=== PATIENT | female | born 1960 | race African-American/Black ===

== ENCOUNTER 2017-09-06 07:38 | Outpatient (CLI) | payer OTHER ==
--- NOTE | 2017-09-06 09:19 | ULT ---
GALLBLADDER ULTRASOUND: Indication: Right upper quadrant pain. FINDINGS: There is a coarsened echotexture of the liver which demonstrates diffuse hyperechoic appearance with a focal area of parenchymal decreased echogenicity measuring between 1 and 1.5 cm, with slight industrial design intern al increased echogenicity, nonspecific. There is no acute gallbladder pathology identified. Common du ct is normal at 4 mm. No ascites visualized. No hydronephrosis of the incidentally imaged portions of the right kidney. IMPRESSION: 1. Hyperechoic liver with internal focus of decreased echogenicity between 1 and 1.5 cm, nonspecific. This could relate to focal fatty sparring although an underlying lesion is not excluded. A follow up [address] abdomen and pelvis with and without contrast is warranted to further evaluate. 2. No acute gallbladder pathology. Code T POS: SANTA
== END 2017-09-06 07:39 | disposition home or self-care (01) ==
LOC: ULT 07:38
PROVIDERS: ATTEND Family Medicine
DX: R10.11 Right upper quadrant pain (principal)
CPT/HCPCS: 76705

== ENCOUNTER 2017-09-14 07:33 | Outpatient (CLI) | payer OTHER ==
--- NOTE | 2017-09-14 10:20 | CT ---
CT ABDOMEN AND PELVIS WITH AND WITHOUT CONTRAST: Date: 09/14/17 HISTORY: Right upper quadrant pain. Abnormal ultrasound. COMPARISON: Gallbladder ultrasound dated 09/06/17. FINDINGS: On the precontrast CT, lung bases are clear. No pericardial effusion. Diffuse hepatic steatosis. No abnormal calcifications of the renal collecting systems. Phleboliths in the pelvis. There is a relatively hyperdense mass in hepatic segment 5 with a small focus of peripheral capsular retraction. This measures approximately 1.2 cm. There is some mild hyperenhancement on the arterial p hase with increased ratio between the area of enhancement of the mass and the background liver. This mass enhances homogeneously. There is also retained contrast on the portal venous phase. There is a simple cyst in lower pole of left kidney. Mild vascular calcification of aorta. No adenopa thy. No dilated loops of large or small bowel. Mild prominence of the ileocecal valve. Mild thickening of the terminal ileum. There are a few foci o f submucosal fatty infiltration of the ascending colon. The pancreatic tail is a subtle hypodensity measuring less than 4.0 mm, although at this point it is felt to most likely represent focal fat within lobule as there is no significant enhancement. This is seen on series 601, image 92, in the distal pancreatic tail. Moderate facet arthropathy lower lumbar spine. Remainder of spine is unremarkable. IMPRESSION: 1. Hepatic segment 5 hepatic mass measuring 1.2 cm has findings suggestive of focal nodular hyperpla carlos versus flash-filling hemangioma. 2. Small mass hepatic segment 8 measuring under 5.0 mm, similar enhancement and characteristics, als o likely a small FNH versus hemangioma. Adenoma is felt somewhat less likely in a patient of this age . To determine between adenoma and FNH, a MRI abdomen with and without contrast with Eovist contrast would be recommended if clinically warranted. POS: SANTA
== END 2017-09-14 07:34 | disposition home or self-care (01) ==
LOC: CT 07:33
PROVIDERS: ATTEND Family Medicine
DX: R16.0 Hepatomegaly, not elsewhere classified (principal)
CPT/HCPCS: 74178

== ENCOUNTER 2017-09-28 14:07 | Outpatient (CLI) | payer OTHER | END 2017-09-28 14:08 | disposition home or self-care (01) | LOC: BICMRI 14:07 | PROVIDERS: ATTEND Family Medicine | DX: R16.0 Hepatomegaly, not elsewhere classified (principal); K76.0 Fatty (change of) liver, not elsewhere classified; K76.89 Other specified diseases of liver; N28.1 Cyst of kidney, acquired | CPT/HCPCS: 74183 ==

== ENCOUNTER 2018-03-03 14:08 | Emergency (ER) | payer OTHER ==
[2018-03-03] MEDS ORDERED: ISOVUE-370 76%-LOCM 1 ML ONE (14:32)
[2018-03-03 15:44] LABS: #Basophils 0.1 thou/uL (0.0-0.2); #Eosinphils 0.1 thou/uL (0.0-0.7); #Lymphocytes 1.2 thou/uL (1.20-3.40); #Monocytes 0.3 thou/uL (0.11-0.59); #Neutrophils 3.7 thou/uL (1.40-6.50); %Basophils 2.4 % (0.0-1.0); %Eosinophils 1.1 % (0.0-10.0); %Lymphocytes 23.2 % (21.0-51.0); %Neutrophils 68.3 % (42.0-75.0); Hemoglobin 13.3 g/dL (12.0-16.0); Mean Corpuscular HGB CONC 31.6 g/dL (32.0-36.0); Mean Corpuscular Hemoglobin 27.2 pg (27.0-31.0); Mean Platelet Volume 7.7 fL (7.4-10.4); Platelet Count 245 thou/uL (130-400); RBC Distribution Width 12.1 % (11.5-14.5); Red Blood Cell (RBC) Count 4.88 mill/uL (4.20-5.40); White Blood Cell (WBC) Count 5.4 thou/uL (4.8-10.8)
[2018-03-03 16:08] LABS: ALT (SGPT) 40 U/L (8-55); AST (SGOT) 56 U/L (5-34); Albumin 4.6 g/dL (3.5-5.0); Alkaline Phosphatase 146 U/L (40-150); Anion Gap 13 mmol/L (10-20); BUN (Urea Nitrogen) 7 mg/dL (9.8-20.1); Bilirubin, Total 0.4 mg/dL (0.2-1.2); Calc. Creatinine Clearance 0 mL/min (70-130); Carbon Dioxide 23 mmol/L (22-29); Chloride 107 mmol/L (98-107); Estimated GFR-MDRD 81; Globulin 3.3 g/dL (2.4-3.5); Glucose 111 mg/dL (70-105); Potassium 3.9 mmol/L (3.5-5.1); Protein, Total 7.9 g/dL (6.0-8.3); Sodium 139 mmol/L (136-145)
[2018-03-03] MEDS ORDERED: Lidocaine Viscous Sol 2% 15 ml UD Cup ONE (16:08)
[2018-03-03] MEDS ORDERED: Ondansetron HCl/PF 4 MG/2 ML Vial ONE (16:08)
[2018-03-03] MEDS ORDERED: Ketorolac Tromethamine 30 MG/ML VIAL ONE (16:08)
[2018-03-03] MEDS ORDERED: Mag-Al 1200 mg/1200 mg/30 ML UDCUP ONE (16:08)
[2018-03-03 16:30] LABS: Bilirubin Negative (Negative); Blood, Urine Trace (Negative); Clarity CLOUDY (Clear); Glucose, Urine (Dipstick) Negative (Negative); Leukocyte Moderate (Negative); Nitrite Negative (Negative); Protein, Urine (Dipstick) Negative (Neg-Trace); Specific Gravity, Urine 1.019 (1.002-1.036); Urobilinogen 0.2 mg/dL (0.2-1.0); pH, Urine 5.5 (5.0-9.0)
[2018-03-03 16:31] LABS: Bacteria/HPF None Seen HPF (None Seen); Hyaline Casts/LPF 4-6 HYALINE CAST LPF (0-3 Hyaline); Pathc Cast-AUWi Flag 0.87 (0-2.49); RBC/HPF 0-3 HPF (0-3); WBC/HPF 21-50 HPF (0-3)
--- NOTE | 2018-03-03 19:28 | CT ---
CT ABDOMEN AND PELVIS WITH IV CONTRAST: INDICATIONS: Diffuse abdominal pain with nausea, vomiting, and diarrhea. COMPARISON: CT abdomen from 09/14/2017. TECHNIQUE: Multiple axial tomograms obtained through the abdomen and pelvis with IV enhancement. FINDINGS: The lung bases are clear. The liver again shows evidence of hepatic steatosis. There is a subtly en hancing lesion in the peripheral right lobe of the liver, which was described on the prior exam as pr obable flesh. A subtle area of low attenuation in the anterior spleen is seen today. This was not present on the p revious portal venous phase, but the significance is uncertain. This is not a defined mass. The pancreas is unremarkable. The adrenal glands are normal. The left renal cyst is stable from the prior exam. The kidneys are otherwise unremarkable. No hydronephrosis. The urinary bladder is unr emarkable. The small bowel loops are of normal caliber. The colon is poorly evaluated by CT due to nondistentio n. Since there is a history of diarrhea, colitis cannot be excluded by CT. There is no free fluid in the abdomen or pelvis. The aorta shows atherosclerotic change but normal c aliber. No adenopathy is seen. IMPRESSION: 1. Nondistention of the colon inhibits adequate evaluation. Colitis cannot be excluded by this CT e xamination. 2. Subtle area of low attenuation in the anterior spleen seen today. Significance is uncertain. Th is could be followed up with CT or ultrasound, as clinically indicated. 3. Left renal cyst is stable. 4. Flash filling hemangioma in the lateral right kidney has been previously described on three phase CT and is faintly seen today. 5. Otherwise, no acute process. POS: AGW
== END 2018-03-03 20:30 | disposition home or self-care (01) ==
LOC: ERS 14:08
DX: N30.00 Acute cystitis without hematuria (principal); K52.9 Noninfective gastroenteritis and colitis, unspecified; E78.5 Hyperlipidemia, unspecified; I10 Essential (primary) hypertension; F32.9 Major depressive disorder, single episode, unspecified; Z79.899 Other long term (current) drug therapy
CPT/HCPCS: 74177; 80053; 81003; 81015; 85025; 96374; 96375; J1885; J2405

== ENCOUNTER 2018-04-23 13:25 | Outpatient (CLI) | payer OTHER | END 2018-04-23 13:26 | disposition home or self-care (01) | LOC: BICMAMMO 13:25 | PROVIDERS: ATTEND Family Medicine | DX: Z12.31 Encounter for screening mammogram for malignant neoplasm of breast (principal) | CPT/HCPCS: 77063; 77067 ==

== ENCOUNTER 2018-07-30 05:59 | Day surgery (SDC) | payer OTHER ==
[2018-07-29 10:40] VITALS: BMI 30.9
--- NOTE | 2018-07-30 10:35 | OP ---
DATE OF PROCEDURE: 07/30/2018 PREOPERATIVE DIAGNOSIS: Average risk screening colonoscopy. PROCEDURE PERFORMED: Colonoscopy. DESCRIPTION OF PROCEDURE: Informed consent was obtained from the patient. She was sedated with total intravenous anesthesia. The rectal exam was performed and was normal. The preparation quality was excellent. The colonoscope was advanced to the cecum with ease. The ileocecal valve and appendiceal orifice were clearly identified. The colonic mucosa was normal throughout. Retroflex views in the rectum were normal. IMPRESSION: Normal screening colonoscopy. RECOMMENDATIONS: Repeat colon cancer screening in 10 years. Job ID: [id number]
[2018-07-30] MEDS ORDERED: Lidocaine 1% PF 5 ML VIAL ONE (16:39)
[2018-07-30] MEDS ORDERED: PROPOFOL 200 MG/20 ML VIAL ONE (16:39)
== END 2018-07-30 09:33 | disposition home or self-care (01) ==
LOC: SDC 05:59
PROVIDERS: ATTEND Internal Medicine Gastroenterology
PROC: 0DJD8ZZ Inspection of Lower Intestinal Tract, Via Natural or Artificial Opening Endoscopic (ICD-10-PCS; principal; 2018-07-30)
DX: Z12.11 Encounter for screening for malignant neoplasm of colon (principal); I10 Essential (primary) hypertension; F32.9 Major depressive disorder, single episode, unspecified; E78.5 Hyperlipidemia, unspecified; Z88.5 Allergy status to narcotic agent; Z90.49 Acquired absence of other specified parts of digestive tract; Z87.891 Personal history of nicotine dependence; Z79.899 Other long term (current) drug therapy
CPT/HCPCS: J2001; J2704

== ENCOUNTER 2018-12-30 15:00 | Outpatient (CLI) | payer OTHER | END 2018-12-30 15:01 | disposition home or self-care (01) | LOC: SLEEPLAB 15:00 | PROVIDERS: ATTEND Family Medicine | DX: R06.83 Snoring (principal); R53.83 Other fatigue; I10 Essential (primary) hypertension; E66.9 Obesity, unspecified; G47.33 Obstructive sleep apnea (adult) (pediatric); Z68.31 Body mass index [BMI] 31.0-31.9, adult | CPT/HCPCS: 95806 ==

== ENCOUNTER 2019-02-21 20:30 | Outpatient (CLI) | payer OTHER | END 2019-02-21 20:31 | disposition home or self-care (01) | LOC: SLEEPLAB 20:30 | PROVIDERS: ATTEND Family Medicine | DX: G47.33 Obstructive sleep apnea (adult) (pediatric) (principal); R53.83 Other fatigue; E66.9 Obesity, unspecified; I10 Essential (primary) hypertension; R06.83 Snoring | CPT/HCPCS: 95811 ==

== ENCOUNTER 2020-03-29 12:08 | Emergency (ER) | payer OTHER ==
[2020-03-29] MEDS ORDERED: Ketorolac Tromethamine 30 MG/ML VIAL ONE (12:38)
--- NOTE | 2020-03-29 13:07 | CT ---
CT Lumbar Spine WO Con History: Injury Comparison: Reference is made to CT of the abdomen and pelvis 2018 Findings: Aortic contour is nonaneurysmal. No free intraperitoneal dependent fluid. Urinary bladder appears be distended. No SI joint widening. No lumbar spine transverse process fracture. No acute compression fracture. No spinous process fractu re. Limited level by level evaluation is as follows: L1/L2: Minimal disc bulge. No neural foraminal or spinal canal narrowing. L2/L3: Minimal disc osteophyte complex. Mild bilateral neural foraminal narrowing. No significant spi nal canal narrowing. L3/L4: Moderate degenerative disc space height loss. Large disc osteophyte complex. Moderate bilatera l neural foraminal narrowing. Mild ligament of flavum hypertrophy. Spinal canal is narrowed to 8 mm. L4/L5: Moderate circumferential disc bulge. Severe right and moderate left hypertrophic facet arthros is. Moderate bilateral neural foraminal narrowing. Spinal canal measures approximately 8 mm. L5/S1: Small circumferential disc bulge with superimposed central disc protrusion extending craniad a pproximate 6 mm.. Mild hypertrophic facet arthrosis. Mild bilateral neural foraminal narrowing. Impression: 1. No acute fracture lumbar spine. 2. Moderate spondylosis with superimposed disc protrusion at L5/S1 which does not cause significant n eural foraminal or spinal canal narrowing. 3. High-grade facet arthrosis at L4/L5.
[2020-03-29] MEDS ORDERED: Acetaminophen/Codeine 30-300mg Tablet ONE (13:46)
== END 2020-03-29 14:00 | disposition home or self-care (01) ==
LOC: ERS 12:08
DX: M54.5 Low back pain (principal); E78.5 Hyperlipidemia, unspecified; I10 Essential (primary) hypertension; F32.9 Major depressive disorder, single episode, unspecified; Z79.899 Other long term (current) drug therapy; X50.0XXA Overexertion from strenuous movement or load, initial encounter; Y99.0 Civilian activity done for income or pay
CPT/HCPCS: 72131; 96372; J1885

== ENCOUNTER 2020-08-06 14:15 | Outpatient (CLI) | payer OTHER | END 2020-08-06 14:16 | disposition home or self-care (01) | LOC: BICMRI 14:15 | PROVIDERS: ATTEND Physical Medicine & Rehabilitation | DX: Z12.31 Encounter for screening mammogram for malignant neoplasm of breast (principal) | CPT/HCPCS: 72148; 77063; 77067 ==

== ENCOUNTER 2020-08-17 08:50 | Outpatient (CLI) | payer OTHER | END 2020-08-17 08:51 | disposition home or self-care (01) | LOC: BICMRI 08:50 | PROVIDERS: ATTEND Physical Medicine & Rehabilitation | DX: M51.27 Other intervertebral disc displacement, lumbosacral region (principal); M47.816 Spondylosis without myelopathy or radiculopathy, lumbar region | CPT/HCPCS: 72148 ==

== ENCOUNTER 2021-04-22 16:02 | Emergency (ER) | payer OTHER ==
[2021-04-22] MEDS ORDERED: Ketorolac Tromethamine 30 MG/ML VIAL ONE (16:43)
[2021-04-22] MEDS ORDERED: Diazepam 10 MG/2 ML SYRINGE ONE (16:47)
== END 2021-04-22 17:24 | disposition home or self-care (01) ==
LOC: ERS 16:02
DX: M54.50 Low back pain, unspecified (principal); E78.5 Hyperlipidemia, unspecified; I10 Essential (primary) hypertension; E11.9 Type 2 diabetes mellitus without complications; Z79.84 Long term (current) use of oral hypoglycemic drugs; Z79.899 Other long term (current) drug therapy; X50.9XXA Other and unspecified overexertion or strenuous movements or postures, initial encounter
CPT/HCPCS: 96374; 96375; J1885; J3360

== ENCOUNTER 2022-02-01 13:21 | Outpatient (CLI) | payer BC | END 2022-02-01 13:22 | disposition home or self-care (01) | LOC: BICMAMMO 13:21 | PROVIDERS: ATTEND Family Medicine | DX: Z12.31 Encounter for screening mammogram for malignant neoplasm of breast (principal) | CPT/HCPCS: 77063; 77067 ==

== ENCOUNTER 2024-01-04 14:46 | Outpatient (CLI) | payer BC | END 2024-01-04 14:47 | disposition home or self-care (01) | LOC: BICMAMMO 14:46 | PROVIDERS: ATTEND Family Medicine | DX: Z12.31 Encounter for screening mammogram for malignant neoplasm of breast (principal) | CPT/HCPCS: 77063; 77067 ==

== ENCOUNTER 2024-01-16 14:32 | Outpatient (CLI) | payer BC | END 2024-01-16 14:33 | disposition home or self-care (01) | LOC: MRI 14:32 | PROVIDERS: ATTEND Family Medicine | DX: M51.16 Intervertebral disc disorders with radiculopathy, lumbar region (principal); M51.37 Other intervertebral disc degeneration, lumbosacral region | CPT/HCPCS: 72148 ==